=== PATIENT | male | born 1980 | race Caucasian/White ===

== ENCOUNTER 2020-03-05 11:42 | Emergency (ER) | payer BC, OTHER ==
[~2020-03-05] VITALS: Ht 167.6 cm; Wt 63.5 kg
[2020-03-05] MEDS ORDERED: Ketorolac 30mg Inj IV ONE (12:15)
--- NOTE | 2020-03-05 12:39 | Emergency Room Report ---
History of Present Illness General Chief Complaint: Male Urogenital Problems Source: Patient (Roxie Romero M.D.) Present Illness HPI Patient is a 39-year-old male past medical history of kidney stones who presents to the ER complaining of left-sided abdominal pain and difficulty urinating. Patient states the pain began this morning. He also complains of pain that radiates towards his left testicle and inside burning pain of his penis. He complains of dark urine. He denies any fever or chills. He denies any nausea or vomiting. She denies any diarrhea. He denies any chest pain or shortness of breath. (Roxie Romero M.D.) Allergies: Coded Allergies: No Known Allergies (Unverified , 03/05/20) COVID-19 Screening Contact w/high risk pt: No Recent Travel to affected area: No Experienced COVID-19 symptoms?: No COVID-19 Testing performed WELDER SHIELDED METAL ARC: Yes COVID-19 Screening: Negative COVID-19 COVID-19 Testing Source: throat (Roxie Romero M.D.) Patient History Reviewed Nursing Documentation: PMH: Agreed; PSxH: Agreed (Roxie Romero M.D.) Nursing Documentation-PMH Past Medical History: No History, Except For Hx Cardiac Problems: No - Hearing problem Hx Hypertension: No Hx Pacemaker: No Hx Asthma: No Hx COPD: No Hx Diabetes: No Hx Cancer: No Hx Gastrointestinal Problems: Yes - Kidney stone Hx Dialysis: No History Of Psychiatric Problem: Yes - Depression, Bipolar Hx Neurological Problems: No Hx Cerebrovascular Accident: No Hx Seizures: No (Roxie Romero M.D.) Review of Systems All Other Systems: negative except mentioned in HPI (Roxie Romero M.D.) Physical Exam Vital Signs Date Time Temp Pulse Resp B/P (MAP) Pulse Ox O2 Delivery O2 Flow Rate FiO2 03/05/20 11:54 97.3 63 14 112/74 (87) 99 Room Air Sp02 EP Interpretation: reviewed, normal General Appearance: no apparent distress, alert, GCS 15, non-toxic Head: normocephalic, atraumatic Eyes: bilateral eye normal inspection, bilateral eye PERRL ENT: normal pharynx, no angioedema, other - Uses hearing aids Neck: full range of motion, supple/symm/no masses Respiratory: chest non-tender, lungs clear, normal breath sounds, speaking full sentences Cardiovascular #1: regular rate, rhythm, no edema Gastrointestinal: no guarding, no rebound, other - Lower quadrant abdominal pain Rectal: deferred Genitourinary: no CVA tenderness Musculoskeletal: normal range of motion Neurologic: flosser III-XII nml as tested, oriented x3 Psychiatric: no suicidal/homicidal ideation Skin: no rash Lymphatic: no adenopathy (Roxie Romero M.D.) Medical Decision Making Diagnostic Impression: Primary Impression: Kidney stone Additional Impressions: Orchitis Varicocele Hydrocele ER Course Patient signed out to me from previous provider approximately 1400 hrs. Briefly this is a 39-year-old male presenting for evaluation of flank and testicular pain. Labs show positive RBCs and blood on urinalysis but otherwise no signs of acute infection, gross electrolyte abnormalities, or other significant acute findings on labs. At the time of signout we are awaiting ultrasound and CT findings. CT scan shows a 5 mm distal ureteral stone consistent with the patient's presentation. There is mild hydronephrosis and hydroureter but no evidence of severe obstruction. Renal function is within normal limits and there is no evidence of urinary tract infection. Ultrasound shows some stranding consistent with an either orchitis or incidental finding. Neoplasm is on the differential as well and a repeat ultrasound recommended for 3 months. Patient is sexually active but denies any discharge. States his testicular pain is now resolved. Will treat with intramuscular ceftriaxone and continue on doxycycline for 10 days to cover for orchitis. Patient will be provided with Flomax, pain medication regarding the kidney stone. He will be referred to a urologist on an outpatient basis to discuss these findings. He understands and agrees with this treatment plan. Laboratory Tests Test 03/05/20 12:18 White Blood Count 6.8 K/UL (4.8-10.8) Red Blood Count 5.04 M/UL (4.70-6.10) Hemoglobin 15.6 G/DL (14.2-18.0) Hematocrit 47.0 % (42.0-52.0) Mean Corpuscular Volume 93 FL (80-99) Mean Corpuscular Hemoglobin 31.0 PG (27.0-31.0) Mean Corpuscular Hemoglobin Concent 33.3 G/DL (32.0-36.0) Red Cell Distribution Width 11.8 % (11.6-14.8) Platelet Count 224 K/UL (150-450) Mean Platelet Volume 9.4 FL (6.5-10.1) Neutrophils (%) (Auto) 36.5 % (45.0-75.0) L Lymphocytes (%) (Auto) 46.1 % (20.0-45.0) H Monocytes (%) (Auto) 11.3 % (1.0-10.0) H Eosinophils (%) (Auto) 4.2 % (0.0-3.0) H Basophils (%) (Auto) 1.9 % (0.0-2.0) Urine Color Yellow Urine Appearance Slightly cloudy Urine pH 6.5 (4.5-8.0) Urine Specific Witten 1.015 (1.005-1.035) Urine Protein 2+ (NEGATIVE) H Urine Glucose (UA) Negative (NEGATIVE) Urine Ketones 1+ (NEGATIVE) H Urine Blood 5+ (NEGATIVE) H Urine Nitrite Negative (NEGATIVE) Urine Bilirubin Negative (NEGATIVE) Urine Urobilinogen 1 MG/DL (0.0-1.0) H Urine Leukocyte Esterase 1+ (NEGATIVE) H Urine RBC 60-80 /HPF (0 - 0) H Urine WBC 0-2 /HPF (0 - 0) Urine Squamous Epithelial Cells Occasional /LPF Urine Bacteria Few /HPF (NONE) Sodium Level 142 MMOL/L (136-145) Potassium Level 4.1 MMOL/L (3.5-5.1) Chloride Level 104 MMOL/L (98-107) Carbon Dioxide Level 29 MMOL/L (21-32) Anion Gap 9 mmol/L (5-15) Blood Urea Nitrogen 21 mg/dL (7-18) H Creatinine 1.1 MG/DL (0.55-1.30) Estimated Glomerular Filtration Rate > 60 mL/min (>60) Glucose Level 112 MG/DL (74-106) H Calcium Level 8.5 MG/DL (8.5-10.1) Magnesium Level 2.0 MG/DL (1.8-2.4) Total Bilirubin 0.3 MG/DL (0.2-1.0) Aspartate Amino Transferase (AST) 11 U/L (15-37) L Alanine Aminotransferase (ALT) 16 U/L (12-78) Alkaline Phosphatase 74 U/L (46-116) Total Protein 7.3 G/DL (6.4-8.2) Albumin 4.1 G/DL (3.4-5.0) Globulin 3.2 g/dL Albumin/Globulin Ratio 1.3 (1.0-2.7) Lipase 232 U/L (73-393) Urine Opiates Screen Negative (NEGATIVE) Urine Barbiturates Screen Negative (NEGATIVE) Phencyclidine (PCP) Screen Negative (NEGATIVE) Urine Amphetamines Screen Negative (NEGATIVE) Urine Benzodiazepines Screen Negative (NEGATIVE) Urine Cocaine Screen Negative (NEGATIVE) Urine Marijuana (THC) Screen Negative (NEGATIVE) (Ronnell Frazier MD) CT/MRI/US Diagnostic Results CT/MRI/US Diagnostic Results : Impression Impression: Striated left testicle. This is usually of no clinical consequence in asymptomatic patients. Symptomatic patient of this age group, most likely differential consideration is focal orchitis. In older patients this can represent fibrosis. Neoplasm is also in the differential, but much less likely given absence of a mass lesion. Recommend correlation with clinical findings and follow-up sonography to exclude progression Negative for evidence of testicular torsion. Small bilateral varicoceles Small right hydrocele Findings discussed by phone with Dr. Frazier in the emergency room at the time of interpretation Dictated By: Michael Greer MD Electronically Signed By: Michael Greer MD Signed Date/Time 03/05/20 1602 CC: Roxie Romero M.D. (Ronnell Frazier MD) Last Vital Signs Date Time Temp Pulse Resp B/P (MAP) Pulse Ox O2 Delivery O2 Flow Rate FiO2 03/05/20 11:54 97.3 63 14 112/74 (87) 99 Room Air (Roxie Romero M.D.) Disposition: HOME, SELF-CARE Condition: Stable Signed Out To: Dr. Frazier at [address], US, reevaluation and final disposition. (Roxie Romero M.D.) Scripts Doxycycline Monohydrate* (DOXYCYCLINE MONOHYDRATE*) 100 Mg Capsule 100 MG ORAL Q12H for 10 Days, #20 CAP 0 Refills Prov: Ronnell Frazier MD 03/05/20 Hydrocodone Bit/Acetaminophen 5-325* (NORCO 5-325 TABLET*) 1 Each Tablet 1 TAB ORAL Q6H PRN for FOR PAIN, #6 TAB 0 Refills Prov: Ronnell Frazier MD 03/05/20 Tamsulosin HCl (Flomax) 0.4 Mg Cap.er.24h 0.4 MG ORAL DAILY for 5 Days, #5 CAP Prov: Ronnell Frazier MD 03/05/20 Ondansetron Odt* (ZOFRAN ODT*) 4 Mg Tab.rapdis 4 MG BC EVERY 6 HOURS PRN for Nausea & Vomiting, #10 TAB 0 Refills Prov: Ronnell Frazier MD 03/05/20 Ibuprofen* (MOTRIN*) 600 Mg Tablet 600 MG ORAL Q6H PRN for For Pain, #30 TAB 0 Refills Prov: Ronnell Frazier MD 03/05/20 Roxie Romero M.D. Mar 05, 2020 12:39 Ronnell Frazier MD Mar 05, 2020 14:19
--- NOTE | 2020-03-05 12:45 | NUR ---
ED Nurse Note:pt. came from home with left lower abdominal pain and urinary retension, pt. is A/Ox4 no signs of distress noted, VSS, blood and urine sent to labs, given pain meds and iv fluids
[2020-03-05 12:50] LABS: APPEARANCE,URINE SLIGHTLY CLOUDY; BILIRUBIN, URINE NEGATIVE (NEGATIVE); GLUCOSE, URINE (UA) NEGATIVE (NEGATIVE); KETONES,URINE 1+ (NEGATIVE); LEUKOCYTE ESTERASE ,URINE 1+ (NEGATIVE); NITRITE,URINE NEGATIVE (NEGATIVE); PH,URINE 6.5 (4.5-8.0); PROTEIN,URINE 2+ (NEGATIVE); UROBILINOGEN,URINE 1 MG/DL (0.0-1.0)
[2020-03-05 12:52] LABS: ANION GAP 9 mmol/L (5-15); BLOOD UREA NITROGEN 21 mg/dL (7-18); CALCIUM 8.5 MG/DL (8.5-10.1); CARBON DIOXIDE 29 MMOL/L (21-32); CHLORIDE 104 MMOL/L (98-107); CREATININE 1.1 MG/DL (0.55-1.30); POTASSIUM 4.1 MMOL/L (3.5-5.1); SODIUM 142 MMOL/L (136-145)
[2020-03-05 12:53] LABS: COLOR,URINE YELLOW
[2020-03-05 12:54] LABS: BASOPHILS % (AUTO) 1.9 % (0.0-2.0); EOSINOPHILS % (AUTO) 4.2 % (0.0-3.0); HEMOGLOBIN 15.6 G/DL (14.2-18.0); LYMPHOCYTES % (AUTO) 46.1 % (20.0-45.0); MEAN CORPUSCULAR VOLUME 93 FL (80-99); MONOCYTES % (AUTO) 11.3 % (1.0-10.0); NEUTROPHILS % (AUTO) 36.5 % (45.0-75.0); PLATELET COUNT 224 K/UL (150-450); RED BLOOD COUNT 5.04 M/UL (4.70-6.10); RED CELL DISTRIBUTION WIDTH 11.8 % (11.6-14.8); WHITE BLOOD COUNT 6.8 K/UL (4.8-10.8)
[2020-03-05 12:56] LABS: ALANINE AMINOTRANSFERASE 16 U/L (12-78); ALBUMIN 4.1 G/DL (3.4-5.0); ALBUMIN/GLOBULIN RATIO 1.3 (1.0-2.7); ALKALINE PHOSPHATASE 74 U/L (46-116); ASPARTATE AMINO TRANSFERASE 11 U/L (15-37); BILIRUBIN,TOTAL 0.3 MG/DL (0.2-1.0)
[2020-03-05 13:01] VITALS: BP 112/74
[2020-03-05] MEDS ORDERED: Morphine Sulfate 4mg/ml Inj (IV USE ONLY) IVP ONE (13:30)
--- NOTE | 2020-03-05 14:23 | Diagnostic Imaging Report ---
Indication: Left-sided abdominal pain and difficulty urinating, history of urinary stone disease Technique: Spiral acquisitions obtained through the abdomen and pelvis. No oral or IV contrast utilized, per urinary stone protocol. Multiplanar reconstructions were generated. Total dose length product 318 mGycm. CTDIvol(s) 5 mGy. Dose reduction achieved using automated exposure control Comparison: none Findings: There is a 5 x 4 mm calculus in the distal left ureter, approximately 1 cm proximal to the ureterovesical junction. This results in mild left hydroureter and minimal if any left hydronephrosis. There is a 2 mm calculus in the lower pole calyx on the left and another 2 mm calculus in an upper pole calyx. No right renal or ureteral calculi are demonstrated. No right hydronephrosis, hydroureter, or ureteral calculi. The bladder is unremarkable. The prostate is unremarkable. Atelectatic contrast limits assessment of the renal parenchyma. No gross renal parenchymal mass or cyst demonstrated. Lack of IV contrast limits assessment of the other solid organs. The gallbladder, bile ducts, pancreas, spleen, adrenals are unremarkable. No retroperitoneal or mesenteric mass or adenopathy. No pelvic mass or adenopathy. The appendix is normal. No evidence of diverticulosis or diverticulitis. No small bowel distention. No free or loculated intraperitoneal gas or fluid. There is a tiny umbilical hernia which contains only fat. The distal esophagus, stomach, duodenum are unremarkable. There is minimal atelectasis at the lung bases. The bones are unremarkable. Impression: Positive for 5 mm distal left ureteral calculus. There is mild hydroureter and minimal hydronephrosis At least 2 punctate intrarenal calculi are seen in the left kidney No other significant abnormality Incidental finding of a small umbilical hernia which contains only fat. The CT scanner at [facility] is accredited by the [employer] and the scans are performed using protocols designed to limit radiation exposure to as low as reasonably achievable to attain images of sufficient resolution adequate for diagnostic evaluation.
[2020-03-05] MEDS ORDERED: IBUPROFEN600 M1 ORAL (14:45)
[2020-03-05] MEDS ORDERED: FLOMAX0.4 MG ORAL (14:45)
[2020-03-05] MEDS ORDERED: ONDANSETRON ODT4 MG BC (14:45)
[2020-03-05] MEDS ORDERED: NORCO 5-325 TA1 EAC1 ORAL (14:45)
[2020-03-05] MEDS ORDERED: DOXYCYCLINE MO100 MG ORAL (16:06)
--- NOTE | 2020-03-05 16:07 | Diagnostic Imaging Report ---
Indications: Left-sided descending groin pain Technique: Grayscale and duplex images of the scrotum Comparison: none Findings:The right testicle measures 4.4 cm in length. It demonstrates normal echogenicity. Normal Doppler flow. 3 mm cyst is seen in the right epididymal head. There is a small hydrocele. There is a small varicocele The left testicle measures 3.3 cm in length. The superolateral portion demonstrates a striated appearance without discrete mass. The remainder of the testicle demonstrates normal echogenicity. Normal Doppler flow. Normal epididymis. There is a small varicocele noted. Impression: Striated left testicle. This is usually of no clinical consequence in asymptomatic patients. Symptomatic patient of this age group, most likely differential consideration is focal orchitis. In older patients this can represent fibrosis. Neoplasm is also in the differential, but much less likely given absence of a mass lesion. Recommend correlation with clinical findings and follow-up sonography to exclude progression Negative for evidence of testicular torsion. Small bilateral varicoceles Small right hydrocele Findings discussed by phone with Dr. Frazier in the emergency room at the time of interpretation
[2020-03-05] MEDS ORDERED: Lidocaine 1% MPF 10mg/ml 5ml INJ ONE (16:15)
[2020-03-05] MEDS ORDERED: Doxycycline Monohydrate 100mg ORAL ONE (16:15)
[2020-03-05 16:30] VITALS: BP 112/74
--- NOTE | 2020-03-05 16:30 | NUR ---
ER DISCHARGE NOTE: Patient is cleared to be discharged per ERMD, pt is aox4, on room air, with stable vital signs. pt was given dc and prescription instructions, pt was able to verbalize understanding, pt id band and iv site removed without complications. pt is able to ambulate with steady gait. pt took all belongings.
== END 2020-03-05 16:33 | disposition home or self-care (01) ==
LOC: EMR 12:10
DX: N20.0 Calculus of kidney (principal); N45.2 Orchitis; I86.1 Scrotal varices; N43.3 Hydrocele, unspecified; F32.9 Major depressive disorder, single episode, unspecified
CPT/HCPCS: 36415; 74176; 76870; 80053; 80307; 81003; 83690; 83735; 85025; 96361; 96372; 96374; 96375; 99284; J0696; J1885; J2270; J2405; J7030

== ENCOUNTER 2020-04-26 12:25 | Emergency (ER) | payer BC ==
[~2020-04-26] VITALS: Ht 165.1 cm; Wt 62.1 kg
[~2020-04-26 12:25] MED LIST: DOXYCYCLINE MO100 MG ORAL; FLOMAX0.4 MG ORAL; IBUPROFEN600 M1 ORAL; NORCO 5-325 TA1 EAC1 ORAL; ONDANSETRON ODT4 MG BC
--- NOTE | 2020-04-26 12:40 | NUR ---
ED Nurse Note: PATIENT WAS BROUGHT IN BY [facility] FROM HOME DUE TO POSSIBLE OD. PER EMS, PT'S ROOMMATE CALLED AND PT HAS HX METH, 4 NARCAN IVP AND ZOFRAN 4MG IVP GIVEN BY EMS. GCS 3 PATIENT PRESENTED WITH FLAT AFECT, AAO X 0, PATIENT PRESENTED WITH NON REBREATHER MASK ON 10L.
[2020-04-26 12:49] LABS: BASOPHILS % (AUTO) 1.5 % (0.0-2.0); HEMATOCRIT 40.4 % (42.0-52.0); LYMPHOCYTES % (AUTO) 27.8 % (20.0-45.0); MEAN CORPUSCULAR VOLUME 88 FL (80-99); MONOCYTES % (AUTO) 14.5 % (1.0-10.0); NEUTROPHILS % (AUTO) 55.1 % (45.0-75.0); PLATELET COUNT 242 K/UL (150-450); RED BLOOD COUNT 4.56 M/UL (4.70-6.10); RED CELL DISTRIBUTION WIDTH 12.2 % (11.6-14.8); WHITE BLOOD COUNT 9.6 K/UL (4.8-10.8)
[2020-04-26 12:57] LABS: ANION GAP 12 mmol/L (5-15); BLOOD UREA NITROGEN 27 mg/dL (7-18); CALCIUM 8.6 MG/DL (8.5-10.1); CARBON DIOXIDE 25 MMOL/L (21-32); CHLORIDE 105 MMOL/L (98-107); CREATININE 1.2 MG/DL (0.55-1.30); POTASSIUM 3.1 MMOL/L (3.5-5.1); SODIUM 142 MMOL/L (136-145)
[2020-04-26 13:02] LABS: ALANINE AMINOTRANSFERASE < 6 U/L (12-78); ALBUMIN 3.5 G/DL (3.4-5.0); ALKALINE PHOSPHATASE 38 U/L (46-116); ASPARTATE AMINO TRANSFERASE 5 U/L (15-37); BILIRUBIN,TOTAL 0.8 MG/DL (0.2-1.0)
[2020-04-26] MEDS ORDERED: Naloxone 1mg/ml 2ml IVP ONE (13:30)
[2020-04-26 13:47] VITALS: BP 96/52
--- NOTE | 2020-04-26 13:58 | Diagnostic Imaging Report ---
Indications: Altered mental status Technique: Spiral acquisitions obtained through the brain. Angled axial and coronal 5 x 5 mm slices were reconstructed. Total dose length product 1098 mGycm. CTDI vol(s) 53 mGy. Dose reduction achieved using automated exposure control Comparison: None. Findings: There is some low-attenuation in the high right posterior frontal deep white matter. No acute intracranial hemorrhage or edema. No mass effect nor midline shift. Normal sized extra axial CSF spaces. There is mild prominence to the ventricles. Visualized orbits and sinuses are unremarkable. The mastoids are clear. Impression: Negative for acute intracranial bleed or mass effect Focal low-attenuation in the high right frontal deep white matter. Nonspecific, could indicate old ischemia or demyelinating disease, among other possibilities. Evidence of mild central volume loss The CT scanner at [facility] is accredited by the [employer] and the scans are performed using protocols designed to limit radiation exposure to as low as reasonably achievable to attain images of sufficient resolution adequate for diagnostic evaluation.
--- NOTE | 2020-04-26 14:00 | NUR ---
ED Nurse Note: Patient awake, responsive to voice. VSS, O2 sat 98% on room air, breathing even and unlabored.
[2020-04-26 15:00] VITALS: BP 108/69
--- NOTE | 2020-04-26 15:18 | NUR ---
ED Nurse Note: Patient awake, AxO x 4, cooperativ,e able to answer questions. No s/s of acute distress. Patient states he did not intentionally OD on any drug and has no desire to hurt himself or others.
--- NOTE | 2020-04-26 15:33 | Emergency Room Report ---
History of Present Illness General Chief Complaint: Overdose Source: Patient, EMS Present Illness HPI 39-year-old male presents for possible overdose. Brought in by EMS from home. Roommates called 911. Patient initially altered. Given Narcan and woke up somewhat. Patient still very lethargic apart arrival. Unable provide any additional history at this time. History of substance abuse per EMS. No other aggravating relieving factors. Denies any other associated symptoms Allergies: Coded Allergies: No Known Allergies (Unverified , 03/05/20) COVID-19 Screening Contact w/high risk pt: No Recent Travel to affected area: No Experienced COVID-19 symptoms?: No COVID-19 Testing performed DOLLYMAN: No Patient History Past Medical History: other - kidney stone Past Surgical History: none Pertinent Family History: none Social History: Denies: smoking, alcohol use, drug use Immunizations: UTD Reviewed Nursing Documentation: PMH: Agreed; PSxH: Agreed Nursing Documentation-PMH Past Medical History Deferred: Patient Unconscious Past Medical History: No History, Except For Hx Cardiac Problems: No - Hearing problem Hx Hypertension: No Hx Pacemaker: No Hx Asthma: No Hx COPD: No Hx Diabetes: No Hx Cancer: No Hx Gastrointestinal Problems: Yes - Kidney stone Hx Dialysis: No Hx Neurological Problems: No Hx Cerebrovascular Accident: No Hx Seizures: No Review of Systems All Other Systems: negative except mentioned in HPI Physical Exam Vital Signs Date Time Temp Pulse Resp B/P (MAP) Pulse Ox O2 Delivery O2 Flow Rate FiO2 04/26/20 12:17 97.3 52 14 96/52 (67) 100 Non-Rebreather 15.0 Sp02 EP Interpretation: reviewed, normal General Appearance: no apparent distress, GCS 15, non-toxic, lethargic Head: normocephalic, atraumatic Eyes: bilateral eye normal inspection, bilateral eye PERRL ENT: hearing grossly normal, normal pharynx, no angioedema, normal voice Neck: full range of motion, supple/symm/no masses Respiratory: chest non-tender, lungs clear, normal breath sounds, speaking full sentences Cardiovascular #1: regular rate, rhythm, no edema Cardiovascular #2: 2+ carotid (R), 2+ carotid (L), 2+ radial (R), 2+ radial (L) , 2+ dorsalis pedis (R), 2+ dorsalis pedis (L) Gastrointestinal: normal bowel sounds, non tender, soft, non-distended, no guarding, no rebound Rectal: deferred Genitourinary: normal inspection, no CVA tenderness Musculoskeletal: back normal, normal range of motion, gait/station normal, non- tender Neurologic: other - lethargic Psychiatric: judgement/insight normal, memory normal, mood/affect normal, no suicidal/homicidal ideation, other - lethargic Reflexes: 3+ bicep (R), 3+ bicep (L), 3+ tricep (R), 3+ tricep (L), 3+ knee (R) , 3+ knee (L) Skin: no rash Lymphatic: no adenopathy Medical Decision Making Diagnostic Impression: Primary Impression: Drug overdose Qualified Codes: T50.901A - Poisoning by unspecified drugs, medicaments and biological substances, accidental (unintentional), initial encounter ER Course Hospital Course 39-year-old M presents to ED with altered mental status. reported overdose Differential diagnoses include: Psychosis, EtOH, drug abuse Clinical course patient placed on stretcher. On cardiac nurse practitioner. After initial history and physical ordered labs, IV fluids, EKG, CT brain. Labs reviewed-electrolytes okay, no leukocytosis, hemoglobin/hematocrit stable, tox panel + for multilple substances CT brain shows no acute pathology EKG - NSR no acute ischemic changes interpreted by me required additional dose of Narcan is now more awake alert oriented. Is able to converse with us. Admitted to using GHB. Denies SI or HI. Observed on cardiac nurse practitioner discussed findings with patient. Safe for discharge with close outpatient follow-up. 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 i. I feel this is a highly complex case requiring extensive working including EKG/Rhythm strip, Xray/CT/US, Blood/urine lab work, repeat exams while in ED, and administration of strong opiates/narcotics for pain control, admission to hospital or close patient follow up. Diagnosis -drug overdose Stable and discharged to home. Followup with PMD. Return to ED if symptoms recur or worsen Labs Test 04/26/20 12:41 White Blood Count 9.6 K/UL (4.8-10.8) Red Blood Count 4.56 M/UL (4.70-6.10) Hemoglobin 14.0 G/DL (14.2-18.0) Hematocrit 40.4 % (42.0-52.0) Mean Corpuscular Volume 88 FL (80-99) Mean Corpuscular Hemoglobin 30.6 PG (27.0-31.0) Mean Corpuscular Hemoglobin Concent 34.6 G/DL (32.0-36.0) Red Cell Distribution Width 12.2 % (11.6-14.8) Platelet Count 242 K/UL (150-450) Mean Platelet Volume 7.9 FL (6.5-10.1) Neutrophils (%) (Auto) 55.1 % (45.0-75.0) Lymphocytes (%) (Auto) 27.8 % (20.0-45.0) Monocytes (%) (Auto) 14.5 % (1.0-10.0) Eosinophils (%) (Auto) 1.0 % (0.0-3.0) Basophils (%) (Auto) 1.5 % (0.0-2.0) Sodium Level 142 MMOL/L (136-145) Potassium Level 3.1 MMOL/L (3.5-5.1) Chloride Level 105 MMOL/L (98-107) Carbon Dioxide Level 25 MMOL/L (21-32) Anion Gap 12 mmol/L (5-15) Blood Urea Nitrogen 27 mg/dL (7-18) Creatinine 1.2 MG/DL (0.55-1.30) Estimat Glomerular Filtration Rate > 60 mL/min (>60) Glucose Level 123 MG/DL (74-106) Calcium Level 8.6 MG/DL (8.5-10.1) Total Bilirubin 0.8 MG/DL (0.2-1.0) Aspartate Amino Transf (AST/SGOT) 5 U/L (15-37) Alanine Aminotransferase (ALT/SGPT) < 6 U/L (12-78) Alkaline Phosphatase 38 U/L (46-116) Total Protein 7.0 G/DL (6.4-8.2) Albumin 3.5 G/DL (3.4-5.0) Globulin 3.5 g/dL Albumin/Globulin Ratio 1.0 (1.0-2.7) Salicylates Level 0.8 ug/mL (2.8-20) Urine Opiates Screen Positive (NEGATIVE) Acetaminophen Level 4 MCG/ML (10-30) Urine Barbiturates Screen Negative (NEGATIVE) Phencyclidine (PCP) Screen Negative (NEGATIVE) Urine Amphetamines Screen Positive (NEGATIVE) Urine Benzodiazepines Screen Negative (NEGATIVE) Urine Cocaine Screen Negative (NEGATIVE) Urine Marijuana (THC) Screen Positive (NEGATIVE) Serum Alcohol 3 mg/dL EKG Diagnostic Results Rate: normal Rhythm: NSR ST Segments: no acute changes ASA given to the pt in ED: No Rhythm Strip Diag. Results EP Interpretation: yes Rhythm: NSR, no PVC's, no ectopy CT/MRI/US Diagnostic Results CT/MRI/US Diagnostic Results : Imaging Test Ordered: CT Head Impression Procedure: CT Head no Contrast Indications: Altered mental status Technique: Spiral acquisitions obtained through the brain. Angled axial and coronal 5 x 5 mm slices were reconstructed. Total dose length product 1098 mGycm. CTDI vol(s) 53 mGy. Dose reduction achieved using automated exposure control Comparison: None. Findings: There is some low-attenuation in the high right posterior frontal deep white matter. No acute intracranial hemorrhage or edema. No mass effect nor midline shift. Normal sized extra axial CSF spaces. There is mild prominence to the ventricles. Visualized orbits and sinuses are unremarkable. The mastoids are clear. Impression: Negative for acute intracranial bleed or mass effect Focal low-attenuation in the high right frontal deep white matter. Nonspecific, could indicate old ischemia or demyelinating disease, among other possibilities. Evidence of mild central volume loss The CT scanner at [facility] is accredited by the [employer] and the scans are performed using protocols designed to limit radiation exposure to as low as reasonably achievable to attain images of sufficient resolution adequate for diagnostic evaluation. Last Vital Signs Date Time Temp Pulse Resp B/P (MAP) Pulse Ox O2 Delivery O2 Flow Rate FiO2 04/26/20 13:47 97.3 14 96/52 100 Non-Rebreather 15.0 04/26/20 13:47 52 Status: improved Disposition: HOME, SELF-CARE Condition: Stable Scripts Naloxone HCl (Narcan) 4 Mg Calvin 4 MG NS Q4HR, #1 SPRAY Prov: Alejandro Rodriguez MD 04/26/20 Referrals: NON PHYSICIAN (PCP) Alejandro Rodriguez MD Apr 26, 2020 15:33
[2020-04-26] MEDS ORDERED: NARCAN4 MG NS (15:34)
[2020-04-26 15:40] VITALS: BP 112/72
== END 2020-04-26 15:40 | disposition home or self-care (01) ==
LOC: EDBD 12:25 → EMR 13:04
DX: T50.901A Poisoning by unspecified drugs, medicaments and biological substances, accidental (unintentional), initial encounter (principal); X58.XXXA Exposure to other specified factors, initial encounter; Y92.9 Unspecified place or not applicable; Z87.442 Personal history of urinary calculi
CPT/HCPCS: 36415; 70450; 80053; 80307; 85025; 93005; 96361; 96374; 99284; G0480; J2310; J7030